=== PATIENT | female | born 1970 | race Caucasian/White ===

== ENCOUNTER 2023-03-03 07:32 | Emergency (ER) | payer OTHER, SELFPAY ==
[2023-03-03 07:39] VITALS: BP 111/73; PULSE 73; RESP 18; TEMP 36.8; O2SAT 98; BMI 27.1
--- NOTE | 2023-03-03 08:22 | ED_ITS ---
HPI - Dizziness General Time Seen by Provider: : Date Seen: 03/03/23 Chief Complaint: Dizziness/Vertigo Stated Complaint: dizzy spells, headache Time Seen by Provider: 03/03/23 08:01 Source: patient, family, RN notes reviewed and old records reviewed Mode of arrival: ambulatory Limitations: no limitations History of Present Illness HPI Narrative: Shadia is a very pleasant 52-year-old female with a history of IBS, otherwise healthy who comes to the emergency room with dizziness today. Shadia had the onset of dizziness on TuesdayFebruary 28. She states she simply rolled over in her bed and the room started spinning and she felt like she was rolling down a hill. Unfortunately, it has continued and actually worsened. On TuesdayMarch 01 she underwent chiropractic treatment and she does describe high velocity treatment of her neck. She states that it feels good when she cracks her neck. On Tuesday this was repeated although she states it was not as aggressive. Unfortunately she has actually had worsening of her vertigo and now has tingling in her fingertips left side greater than right. She states that is almost a numbness now. She also has a headache that has developed in the base of her head. She denies visual changes except for occasional blurriness. She denies any new ear symptoms or fullness. She states that she has chronic ringing of the ears. She gets nauseated when she does have the spinning sensation but has not been vomiting. She has not had fever but feels maybe like she has had chills but she states that does not feel like it would if she was actually coming down or sick with something. She has not had cough, exposure to COVID or influenza that she knows of. Head movement increases her vertigo. When asked if lying down sitting or standing gave her any relief she states they are all equally bad now. Her description of the dizziness is vertigo. Note patient also describes IV vitamins given by a a nurse from [employer] who does house calls. This was 48 hours ago. Patient also received a shot of vitamin-D at that time. States that initially she thought this it helped but by evening she was feeling poorly again. Related Data Previous Rx's Medication Instructions Recorded meclizine 25 mg tablet 25 mg PO TID #30 tabs 03/03/23 Allergies Allergy/AdvReac Type Severity Reaction Status Date / Time Penicillins Allergy Verified 03/03/23 07:42 Review of Systems Status of ROS: Reports: 10 or more systems reviewed and unremarkable except as noted in History and below Const: Reports: chills; Denies: fever Eyes: Reports: blurry vision (Rarely); Denies: eye discharge, floaters or seeing flashes ENMT: Reports: vertigo; Denies: throat pain, neck pain, difficulty swallowing, hoarseness or nasal discharge Cardio: Reports: chest pain (2 episodes of discomfort behind her left breast that resolved.) and shortness of breath with exertion (When vertigo is bad); Denies: swelling of feet/ankles Resp: Reports: shortness of breath (When vertigo is bad); Denies: cough GI: Reports: nausea; Denies: abdominal pain, vomiting or difficulty swallowing Musculo: Denies: neck pain or extremity pain Integ/Breast: Denies: rash Neuro: Reports: vertigo PFSH PFSH Social History Smoking Status: Current some day smoker How often do you have a drink containing alcohol: never AUDIT-C Alcohol total score: 0 Non-prescribed substance use: denies use Exam Narrative: Exam Narrative: Alert and oriented. GCS of 15. Guarded in movement. EOM is full with pupils e qual and reactive. Given the severity of her symptoms I did not put her through Hallpike maneuvers. I did not note any nystagmus at rest. Right TM partially obscured by cerumen. Appears otherwise normal. Left TM is a somewhat opaque but not bulging. No erythema. Face is symmetrical with eyebrow raise smile tongue is midline. Palate rises symmetrically. Heart with a regular rate and rhythm. No murmur auscultated. Lungs are clear bilaterally. Abdomen soft nontender. Lower extremities without edema. DTRs at all 4 extremities 2+. Upper extremity strength mildly decreased bilaterally secondary to effort/fatigue. Lower extremity strength intact. Const: Vital Signs, click to edit/add: Vital Signs - 24 hr 03/03/23 07:39 03/03/23 09:52 03/03/23 10:00 Temperature 98.3 F Pulse Rate 70 78 Pulse Rate [Right Pulse Oximeter] 73 Respiratory Rate 18 Blood Pressure [Le ft Upper Arm] 111/73 Pulse Oximetry 98 98 96 Oxygen Delivery Me thod Room Air 03/03/23 13:32 Temperature Pulse Rate 80 Pulse Rate [Right Pulse Oximeter] Respiratory Rate Blood Pressure [Le ft Upper Arm] Pulse Oximetry 97 Oxygen Delivery Me thod Documenting provider has reviewed patient's vital signs: yes Course Course ED Course: Differential diagnosis includes but is not limited to CVA, benign positional vertigo, cervical spine injury, vertebral artery dissection, COVID, other viral illness. Will place IV and give patient 500 mL normal saline along with Benadryl 25 mg IV. I am very concerned that what was a benign positional vertigo is now complicated by a vertebral artery dissection secondary to clinical care leader earlier this week. Patient will undergo CT CTA head and neck at this time. Will also check electrolytes and CBC given treatment earlier in the week with IV vitamins. Reevaluation(s) Reevaluation #1: Patient noted to feel very groggy after Benadryl. CTA is negative for any evidence of dissection. I do speak with Neurology in regards to this patient and given the basilar headache and worsening symptoms, it is recommended that we proceed with brain MRI with and without contrast. Neurologist does not feel we need to order MRA at this time. Patient is agreeable to this. Reevaluation #2: Patient noted to have headache and my partner ordered 4 mg of morphine and 4 mg of Zofran. Agreement with this plan. Vital Signs Vital signs: Initial Vital Signs Temperature 98.3 F 03/03/23 07:39 Temperature Source Temporal Artery Scan 03/03/23 07:39 Pulse Rate 73 03/03/23 07:39 Respiratory Rate 18 03/03/23 07:39 Blood Pressure 111/73 03/03/23 07:39 Blood Pressure Mean 85 03/03/23 07:39 Blood Pressure Position Sitting 03/03/23 07:39 Pulse Oximetry 98 03/03/23 07:39 Oxygen Delivery Method Room Air 03/03/23 07:39 Vital Signs Temperature 98.3 F 03/03/23 07:39 Pulse Rate 73 03/03/23 07:39 Respiratory Rate 18 03/03/23 07:39 Blood Pressure 111/73 03/03/23 07:39 Pulse Oximetry 98 03/03/23 07:39 Oxygen Delivery Method Room Air 03/03/23 07:39 Temperature 98.3 F 03/03/23 07:39 Pulse Rate 80 03/03/23 13:32 Respiratory Rate 18 03/03/23 07:39 Blood Pressure 111/73 03/03/23 07:39 Pulse Oximetry 97 03/03/23 13:32 Oxygen Delivery Method Room Air 03/03/23 07:39 Medications Administered Medications: Discontinued Medications Generic Name Dose Route Start Last Admin Trade Name Cruz PRN Reason Stop Dose Admin Diphenhydramine HCl 25 mg 03/03/23 08:25 03/03/23 09:05 Diphenhydramine 50 Mg/Ml Inj IVP 03/03/23 08:26 25 mg ONCE ONE Administration Sodium Chloride 500 mls @ 500 mls/hr 03/03/23 08:25 03/03/23 10:00 0.9 % Sodium Chloride 500 Ml IV 03/03/23 09:24 Infused .Q1H ONE Infusion Morphine Sulfate 4 mg 03/03/23 12:50 03/03/23 13:22 Morphine 4 Mg/Ml Inj IVP 03/03/23 12:51 4 mg ONCE ONE Administration Ondansetron HCl 4 mg 03/03/23 12:50 03/03/23 13:22 Ondansetron 2 Mg/Ml Inj IVP 03/03/23 12:51 4 mg ONCE ONE Administration MDM - Dizziness MDM Narrative Medical decision making narrative: 1. Benign positional vertical-patient fortunately had no evidence of vertebral artery dissection secondary to recent clinical care leader nor evidence of CVA, hemorrhagic bleed on MRI or CT. Reassurance at this time. Neurology notes that there we are able to trust results of the CTA in regards to worries regarding dissection. At this time reassurance to patient at and labs all look good. Recommend meclizine 25 mg 1-2 tablets p.o. t.i.d. p.r.n. number 30 with 1 refill sent to pharmacy. Recommend very slow movement upon arising from sleep. Demonstrated rotation flexion extension of the arm neck prior to getting up done in a very very slow manner. Patient should have improvement over the next few days. Recommend Apley's maneuver for next week if not improving. 2. Headache-no evidence of intracranial bleed or abnormality. Morphine and Zofran given in the ED but patient may use ibuprofen Tylenol at home. 3. Disposition-home at this time. Return for worsening symptoms and as needed. Medical Records Attestation: I reviewed the patient's medical records. Lab Data Attestation: I reviewed the patient's lab results. Labs: Lab Results 03/03/23 03/03/23 Range/Units 07:38 08:28 WBC 9.36 (4.50-11.00) K/uL RBC 4.51 (4.00-5.20) m/uL Hgb 13.5 (12.0-16.0) gm/dL Hct 41.0 (33.0-51.0) % MCV 91 (80-100) fL MCH 30 (26-34) pg MCHC 33 (32-36) gm/dL RDW Coeff of Maeve 12.5 (11.5-15.5) % Plt Count 353 (140-440) K/uL Neut % (Auto) 65.5 (42.0-72.0) % Lymph % (Auto) 23.2 (20-44) % [place] % (Auto) 7.2 (0.0-11.0) % Eos % (Auto) 3.7 (0.0-7.0) % Baso % (Auto) 0.3 (0.0-3.0) % Neut # (Auto) 6.13 (1.7-7.0) K/uL Lymph # (Auto) 2.17 (0.90-2.90) K/uL [place] # (Auto) 0.70 (0.00-0.90) K/UL Eos # (Auto) 0.35 (0.00-0.50) K/uL Baso # (Auto) 0.03 (0.00-0.30) K/uL Abs Immat Gran (auto) 0.01 (0.00-0.30) K/uL Imm/Tot Granulo (auto) 0.1 % Sodium 139 (135-149) mmol/L Potassium 4.2 (3.6-5.1) mmol/L Chloride 106 (96-114) mmol/L Carbon Dioxide 29 (20-32) mmol/L Anion Gap 4 L (7-15) mEq/L BUN 13 (7-30) mg/dL Creatinine 0.5 (0.5-1.5) mg/dL Estimated Creat Clear 96.69 Estimated GFR 114 ml/min Glucose 98 (60-115) mg/dL Calcium 9.3 (8.4-10.6) mg/dL Magnesium 1.7 (1.5-2.6) mg/dL Total Bilirubin 0.5 (0.1-1.5) mg/dL AST 29 (12-35) U/L ALT 34 (4-35) U/L Alkaline Phosphatase 57 (40-150) U/L Total Protein 8.1 (6.0-8.3) g/dL Albumin 4.6 (3.3-5.0) g/dL SARS-CoV-2 (PCR) Negative SARS-CoV-2 (Negative) Influenza Type A (PCR) Negative PCR FLU A (Negative) Influenza Type B (PCR) Negative PCR FLU B (Negative) RSV (PCR) Negative PCR RSV (Negative) Imaging Data CT scan - head: Attestation: I have reviewed the pertinent imaging results. Radiologist's impression: Normal hall-white matter differentiation throughout. No intracranial hemorrhage. No mass, mass effect, or midline shift. The ventricles are normal in size and shape. No fracture or focal osseous lesion. The mastoid and middle ears are clear. The paranasal sinuses are clear. Included orbit and globe are normal. IMPRESSION: Normal head CT. Head and neck angio: Attestation: I have reviewed the pertinent imaging results. Radiologist's impression: The great vessels are patent. The common carotid arteries are patent. The proximal ICAs are patent without signficant stenoses by NASCET criteria. The more distal cervical ICAs are patent. The origins of the vertebral arteries are patent. The cervical segments of the vertebral arteries are patent. IMPRESSION: Patent cervical arterial vasculature without hemodynamically significant luminal stenosis. The petrous, cavernous, and supraclinoid segments of the internal carotid arteries are patent. The anterior and middle cerebral arteries are patent. The anterior communicating artery is visualized and is within normal limits. The intracranial vertebral arteries, basilar trunk, and posterior cerebral arteries are patent. No intracranial proximal large vessel occlusion or flow-limiting luminal stenosis. No evidence of cerebral aneurysm. No findings to suggest an arterial-venous shunting lesion. The major dural venous sinuses and deep venous system are patent. IMPRESSION: No intracranial proximal large vessel occlusion, flow-limiting luminal stenosis, or cerebral aneurysm. MRI - head: Attestation: I have reviewed the pertinent imaging results. Radiologist's impression: The ventricles and sulci are within normal limits for patient age. No mass effect or midline shift. Few punctate FLAIR hyperintensities in the supratentorial white matter, nonspecific. No intracranial hemorrhage or pathologic extra-axial fluid collection. No diffusion restriction to suggest acute infarction. No pathologic intracranial enhancement. Small developmental venous anomaly lateral left frontal lobe, an anatomic variant. Partially empty sella may represent an anatomic variant. No mass or pathologic enhancement along the visualized course of trigeminal nerves including the cisternal segments, Meckel caves, cavernous sinuses, foramina ovale, or visualized portions of the maxillary/mandibular divisions. No mass-effect on the trigeminal nerve root entry zones or cisternal segments. The major arterial flow voids of the skullbase are preserved. The globes are symmetric. The paranasal sinuses are well aerated. The mastoid air cells are clear. IMPRESSION: 1. No acute intracranial abnormality. 2. No mass or pathologic enhancement along the visualized course of the trigeminal nerves. 3. Few punctate FLAIR hyperintensities in the supratentorial white matter are nonspecific, though typical for sequelae of minimal chronic microvascular ischemic changes or migraine headaches. Discharge Plan Discharge Clinical Impression: Vertigo Patient Disposition: Home, Self-Care Condition: Improved Additional Instructions: Meclizine as needed for vertigo. This will make you tired so please do not use alcohol nor drive with this medication. Ibuprofen or Tylenol as needed for discomfort. Please return to the emergency room should you have worsening symptoms or the onset of new symptoms. Prescriptions: New meclizine 25 mg tablet 25 mg PO TID Qty: 30 1RF Rx Instructions: May take 1-2 tabs every 8 hours as needed for dizziness. Follow Up/Referrals: Provider,Not a Local [Primary Care Provider] - Stand Alone Forms: [employer] Info Instructions
--- NOTE | 2023-03-03 08:25 | CRLHL7_ITS ---
For Patients: As a result of the Century Cures Act, medical imaging exams and procedure reports are released immediately into your electronic medical record. You may view this report before your referring provider. If you have questions, please contact your health care provider. CLINICAL HISTORY: Headache and vertigo status post chiropractic manipulation. TECHNIQUE: CTA head with contrast bolus tracking. 3D angiographic rendering using maximum intensity projection (MIP) and images permanently archived. COMPARISON: None available. FINDINGS: The petrous, cavernous, and supraclinoid segments of the internal carotid arteries are patent. The anterior and middle cerebral arteries are patent. The anterior communicating artery is visualized and is within normal limits. The intracranial vertebral arteries, basilar trunk, and posterior cerebral arteries are patent. No intracranial proximal large vessel occlusion or flow-limiting luminal stenosis. No evidence of cerebral aneurysm. No findings to suggest an arterial-venous shunting lesion. The major dural venous sinuses and deep venous system are patent. IMPRESSION: No intracranial proximal large vessel occlusion, flow-limiting luminal stenosis, or cerebral aneurysm. Please note that all CT scans at this facility use dose modulation, iterative reconstruction, and/or weight-based dosing when appropriate to reduce radiation dose to as low as reasonably achievable. Dictated by Chucho Zafar MD @ 03/03/2023 9:19:28 AM (Electronically Signed)
--- NOTE | 2023-03-03 08:25 | CRLHL7_ITS ---
For Patients: As a result of the Century Cures Act, medical imaging exams and procedure reports are released immediately into your electronic medical record. You may view this report before your referring provider. If you have questions, please contact your health care provider. CLINICAL HISTORY: Vertigo and headache status post chiropractor manipulation. TECHNIQUE: CTA neck with contrast bolus tracking. 3D angiographic rendering using maximum intensity projection (MIP) and images permanently archived. COMPARISON: None available. FINDINGS: The great vessels are patent. The common carotid arteries are patent. The proximal ICAs are patent without signficant stenoses by NASCET criteria. The more distal cervical ICAs are patent. The origins of the vertebral arteries are patent. The cervical segments of the vertebral arteries are patent. IMPRESSION: Patent cervical arterial vasculature without hemodynamically significant luminal stenosis. Please note that all CT scans at this facility use dose modulation, iterative reconstruction, and/or weight-based dosing when appropriate to reduce radiation dose to as low as reasonably achievable. Dictated by Chucho Zafar MD @ 03/03/2023 9:17:17 AM (Electronically Signed)
--- NOTE | 2023-03-03 08:25 | CRLHL7_ITS ---
For Patients: As a result of the Century Cures Act, medical imaging exams and procedure reports are released immediately into your electronic medical record. You may view this report before your referring provider. If you have questions, please contact your health care provider. INDICATION: Vertigo, headache, recent chiropractor visit, history of squamous cell carcinoma left forehead. COMPARISON: None. TECHNIQUE: CT of the brain/head without the use of IV contrast. Multiplanar axial, coronal, and sagittal reformats were reconstructed. FINDINGS: Normal hall-white matter differentiation throughout. No intracranial hemorrhage. No mass, mass effect, or midline shift. The ventricles are normal in size and shape. No fracture or focal osseous lesion. The mastoid and middle ears are clear. The paranasal sinuses are clear. Included orbit and globe are normal. IMPRESSION: Normal head CT. Please note that all CT scans at this facility use dose modulation, iterative reconstruction, and/or weight-based dosing when appropriate to reduce radiation dose to as low as reasonably achievable. Dictated by Delores Day MD @ 03/03/2023 9:14:55 AM (Electronically Signed)
[2023-03-03 08:30] LABS: PCR FLU A Negative PCR FLU A (Negative); PCR FLU B Negative PCR FLU B (Negative); PCR RSV Negative PCR RSV (Negative)
[2023-03-03 08:33] LABS: SARS PCR* Negative SARS-CoV-2 (Negative)
[2023-03-03 08:41] LABS: Basophils Absolute Auto 0.03 K/uL (0.00-0.30); Basophils Percent Auto 0.3 % (0.0-3.0); Eosinophils Absolute Auto 0.35 K/uL (0.00-0.50); Eosinophils Percent Auto 3.7 % (0.0-7.0); Hemoglobin* 13.5 gm/dL (12.0-16.0); Immature Granulocytes Abs Auto 0.01 K/uL (0.00-0.30); Immature Granulocytes Pct Auto 0.1 %; Lymphocytes Absolute Auto 2.17 K/uL (0.90-2.90); Lymphocytes Percent Auto 23.2 % (20-44); Mean Corpuscular HGB Conc 33 gm/dL (32-36); Mean Corpuscular Hemoglobin 30 pg (26-34); Mean Corpuscular Volume 91 fL (80-100); Monocytes Percent Auto 7.2 % (0.0-11.0); Neutrophils Absolute Auto 6.13 K/uL (1.7-7.0); Neutrophils Percent Auto 65.5 % (42.0-72.0); Platelet Count* 353 K/uL (140-440); RDW Coefficient of Variation % 12.5 % (11.5-15.5); Red Blood Count 4.51 m/uL (4.00-5.20); White Blood Count* 9.36 K/uL (4.50-11.00)
[2023-03-03 08:47] LABS: Slide Review Reflex No
[2023-03-03 08:54] LABS: Albumin* 4.6 g/dL (3.3-5.0); Chloride* 106 mmol/L (96-114); Potassium* 4.2 mmol/L (3.6-5.1); Sodium* 139 mmol/L (135-149)
[2023-03-03 08:57] LABS: Alanine Aminotransferase* 34 U/L (4-35); Alkaline Phosphatase* 57 U/L (40-150); Anion Gap 4 mEq/L (7-15); Aspartate Amino Transferase* 29 U/L (12-35); Bilirubin Total* 0.5 mg/dL (0.1-1.5); Blood Urea Nitrogen* 13 mg/dL (7-30); Carbon Dioxide* 29 mmol/L (20-32); Creatinine* 0.5 mg/dL (0.5-1.5); Est. Creatinine Clearance* 96.69; Estimated Glomerular Filt Rate 114 ml/min; Glucose* 98 mg/dL (60-115); Total Protein* 8.1 g/dL (6.0-8.3)
[2023-03-03 08:58] LABS: Calcium* 9.3 mg/dL (8.4-10.6); Magnesium* 1.7 mg/dL (1.5-2.6)
[2023-03-03] MEDS: diphenhydrAMINE 50 MG/ML inj 25 MG IVP (09:05)
[2023-03-03] MEDS: 0.9 % SODIUM CHLORIDE 500 ML 500 ML IV (09:05)
--- NOTE | 2023-03-03 09:15 | ED.NURSE ---
ice applied to neck
--- NOTE | 2023-03-03 09:50 | CRLHL7_ITS ---
For Patients: As a result of the Century Cures Act, medical imaging exams and procedure reports are released immediately into your electronic medical record. You may view this report before your referring provider. If you have questions, please contact your health care provider. INDICATION: Basilar headache. Vertigo. TECHNIQUE: Multiplanar multisequence MR imaging acquired through the brain prior to and following intravenous contrast. COMPARISON: CTA head neck 03/03/2023. FINDINGS: The ventricles and sulci are within normal limits for patient age. No mass effect or midline shift. Few punctate FLAIR hyperintensities in the supratentorial white matter, nonspecific. No intracranial hemorrhage or pathologic extra-axial fluid collection. No diffusion restriction to suggest acute infarction. No pathologic intracranial enhancement. Small developmental venous anomaly lateral left frontal lobe, an anatomic variant. Partially empty sella may represent an anatomic variant. No mass or pathologic enhancement along the visualized course of trigeminal nerves including the cisternal segments, Meckel caves, cavernous sinuses, foramina ovale, or visualized portions of the maxillary/mandibular divisions. No mass-effect on the trigeminal nerve root entry zones or cisternal segments. The major arterial flow voids of the skullbase are preserved. The globes are symmetric. The paranasal sinuses are well aerated. The mastoid air cells are clear. IMPRESSION: 1. No acute intracranial abnormality. 2. No mass or pathologic enhancement along the visualized course of the trigeminal nerves. 3. Few punctate FLAIR hyperintensities in the supratentorial white matter are nonspecific, though typical for sequelae of minimal chronic microvascular ischemic changes or migraine headaches. Dictated by Sameer Proctor MD @ 03/03/2023 12:38:10 PM (Electronically Signed)
[2023-03-03 09:52] VITALS: PULSE 70; O2SAT 98
[2023-03-03 10:00] VITALS: PULSE 78; O2SAT 96
[2023-03-03] MEDS: MORPHINE 4 MG/ML INJ IVP (13:22)
[2023-03-03] MEDS: ONDANSETRON 2 MG/ML inj 4 MG IVP (13:22)
[2023-03-03 13:32] VITALS: PULSE 80; O2SAT 97
== END 2023-03-03 13:45 | disposition home or self-care (01) ==
PROVIDERS: Family Medicine; Emergency Provider Family Medicine
DX: H81.13 Benign paroxysmal vertigo, bilateral (principal); R51.9 Headache, unspecified
CPT/HCPCS: 36415; 70450; 70496; 70498; 70553; 80053; 83735; 85025; 87631; 96374; 96375; 99284; 99285; A9575; J1200; J2270; J2405; J7120; Q9967

== ENCOUNTER 2023-03-17 15:30 | Outpatient (RCR) | payer OTHER, SELFPAY | END 2023-06-09 13:59 | disposition home or self-care (01) | PROVIDERS: PCP Physician Assistant Medical; Visit Provider Family Medicine | DX: H81.11 Benign paroxysmal vertigo, right ear (principal); R26.81 Unsteadiness on feet; Z51.89 Encounter for other specified aftercare | CPT/HCPCS: 97110; 97112; 97140; 97162 ==